=== PATIENT | female | born 1990 | race Two or more races ===

== ENCOUNTER 2016-12-05 01:07 | Emergency (ER) | payer SELFPAY ==
[~2016-12-05] VITALS: Ht 152.4 cm; Wt 61.2 kg
[2016-12-05 01:12] VITALS: BP 126/74
[2016-12-05 03:07] VITALS: BP 131/79
--- NOTE | 2016-12-05 03:57 | Emergency Room Report ---
History of Present Illness General Chief Complaint: Alcohol Intoxication Source: Patient, EMS Present Illness HPI 26YOF BIBEMS from street, found vomiting, lying on ground. VS and glucose normal on scene. Patient denies any drug use, or pain. Denies other medical problems. Allergies: Coded Allergies: No Known Allergies (Unverified , 12/05/16) Patient History Limited by: medical condition Past Surgical History: unable to obtain Pertinent Family History: unable to obtain Social History: Reports: alcohol use Last Menstrual Period: unk Nursing Documentation-PMH Past Medical History: No Stated History Review of Systems All Other Systems: limited - Patient intoxicated Physical Exam Vital Signs Date Time Temp Pulse Resp B/P Pulse Ox O2 Delivery O2 Flow Rate FiO2 12/05/16 00:57 88 16 126/74 98 Room Air Sp02 EP Interpretation: reviewed, normal General Appearance: normal inspection, well appearing, no apparent distress, alert, GCS 15, non-toxic, other - Dried vomiting on shirt Head: normocephalic, atraumatic Eyes: bilateral eye EOMI, bilateral eye PERRL ENT: normal ENT inspection, hearing grossly normal, normal voice Neck: normal inspection, full range of motion, supple, no bony tend Respiratory: normal inspection, lungs clear, normal breath sounds, no respiratory distress, no retraction, no wheezing Cardiovascular #1: regular rate, rhythm, no edema Gastrointestinal: normal inspection, normal bowel sounds, non tender, soft, no guarding, no hernia Genitourinary: no CVA tenderness Musculoskeletal: normal inspection, back normal, normal range of motion, Rafal' s Sign negative Neurologic: normal inspection, alert, responsive, spar cap beveler III-XII nml as tested, motor strength/tone normal, speech normal Psychiatric: normal inspection, judgement/insight normal, mood/affect normal Skin: normal inspection, normal color, no rash Lymphatic: normal inspection Medical Decision Making Diagnostic Impression: Primary Impression: Acute alcoholic intoxication Qualified Codes: F10.120 - Alcohol abuse with intoxication, uncomplicated ER Course 26YOF with acute ETOH intoxication VSS. Afebrile. Atraumatic No focal neuro deficits Is resting comfortably in ED Provided safe place for patient to sober up Serial vital signs and checks by RNs Upon DC, tolerating PO, ambulating with steady gait Has means to get home Advised against heavy drinking in the future DC home Last Vital Signs Date Time Temp Pulse Resp B/P Pulse Ox O2 Delivery O2 Flow Rate FiO2 12/05/16 03:07 82 16 131/79 99 Room Air Status: improved Disposition: HOME, SELF-CARE Referrals: NOT CHOSEN IPA/,REFERRING (PCP) SIENA NUÑEZ M.D. December 05, 2016 03:57
[2016-12-05 05:14] VITALS: BP 127/76
[2016-12-05 05:28] VITALS: BP 127/76
== END 2016-12-05 05:28 | disposition home or self-care (01) ==
LOC: EDBD 01:07 → EMR 01:31
DX: F10.129 Alcohol abuse with intoxication, unspecified (principal); R11.10 Vomiting, unspecified
CPT/HCPCS: 99284